=== PATIENT | male | born 1975 ===

== ENCOUNTER 2017-08-22 17:15 | Emergency (ER) | payer OTHER ==
[2017-08-22 17:31] VITALS: RESP 18
--- NOTE | 2017-08-22 17:47 | ED PDOC ---
Lower Extremity Pain/Injury Time Seen by Provider: 08/22/17 17:32 Chief Complaint (Nursing): Lower Extremity Problem/Injury Chief Complaint (Provider): Bilateral Foot Pain History Per: Patient Onset/Duration Of Symptoms: Days (x1 month) Current Symptoms Are (Timing): Still Present Additional Complaint(s): 42 y/o male presenting for evaluation of b/l foot pain x1 month. Patient states he works at a [employer] and does a lot of walking and standing. He denies trauma or injury. Tylenol has helped only minimally with pain. PMD: None Past Medical History Reviewed: Historical Data, Nursing Documentation, Vital Signs Vital Signs: Last Vital Signs Temp 98.6 F 08/22/17 17:29 Pulse 80 08/22/17 17:29 Resp 18 08/22/17 17:29 BP 143/93 H 08/22/17 17:29 Pulse Ox 98 08/22/17 17:29 - Medical History PMH: No Chronic Diseases - Surgical History Other surgeries: Oral surgery - Family History Family History: States: No Known Family Hx - Living Arrangements Living Arrangements: With Family - Social History Current smoker - smoking cessation education provided: No Alcohol: Occasional Drugs: Denies - Home Medications Home Medications: Ambulatory Orders Medication Instructions Recorded Ibuprofen [Motrin Tab] 800 mg PO Q8 PRN #20 tab 08/22/17 - Allergies Allergies/Adverse Reactions: Allergies Allergy/AdvReac Type Severity Reaction Status Date / Time No Known Allergies Allergy Verified 08/22/17 17:31 Wells Criteria for PE - Wells Criteria for Pulmonary Embolism Clinical Signs and Symptoms of DVT: No P.E is #1 Diagnosis, or Equally Likely: No Heart Rate >100: No Immobilization at least 3 days;Surgery previous 4 weeks: No Previous, objectively diagnosed PE or DVT: No Hemoptysis: No Malignancy w/treatment within 6 months, or palliative: No Total Score: 0 Review of Systems ROS Statement: Except As Marked, All Systems Reviewed And Found Negative Constitutional: Negative for: Fever Musculoskeletal: Positive for: Foot Pain (bilateral) Physical Exam - Reviewed Nursing Documentation Reviewed: Yes Vital Signs Reviewed: Yes - Physical Exam Appears: Positive for: Well, Non-toxic, No Acute Distress Head Exam: Positive for: ATRAUMATIC, NORMAL INSPECTION, NORMOCEPHALIC Skin: Positive for: Normal Color. Negative for: Rash Eye Exam: Positive for: Normal appearance Extremity: Positive for: Normal ROM, Tenderness (tenderness to the plantar aspect of both feet, no ulcers, no skin breakdown) Neurologic/Psych: Positive for: Alert, Oriented - ECG O2 Sat by Pulse Oximetry: 98 (RA) Pulse Ox Interpretation: Normal Medical Decision Making Medical Decision Makin:47 Initial Impression: 42 y/o male with bilateral foot pain Plan: --Motrin 600mg PO --X-Ray left foot --X-Ray right foot --Reevaluation Patient is aware of x-ray findings. Patient feels better after Motrin dose. Prescription given for Motrin. Patient was referred to podiatry clinic for follow-up. Scribe Attestation: Documented by Jian Laguna, acting as a scribe for Ilda Snowden PA-C. Provider Scribe Attestation: All medical record entries made by the Scribe were at my direction and personally dictated by me. I have reviewed the chart and agree that the record accurately reflects my personal performance of the history, physical exam, medical decision making, and the department course for this patient. I have also personally directed, reviewed, and agree with the discharge instructions and disposition. Disposition - Clinical Impression Clinical Impression: Heel spur, Plantar fasciitis, bilateral - Patient ED Disposition Is Patient to be Admitted: No Counseled Patient/Family Regarding: Studies Performed, Diagnosis, Need For Followup, Rx Given - Disposition Referrals: Podiatry Clinic [Outside] Disposition: Routine/Home Disposition Time: 18:34 Condition: STABLE Additional Instructions: Take prescription medications as directed as needed for pain. Follow-up with podiatry clinic. Prescriptions: Ibuprofen [Motrin Tab] 800 mg PO Q8 PRN #20 tab PRN Reason: Pain, Moderate (4-7) Instructions: Plantar Fasciitis Exercises, Heel Pain (Caused by Plantar Fasciitis), Heel Spurs (DC) Forms: [employer] (Portuguese), [facility] ED School/Work Excuse Print Language: [place]
[2017-08-22 18:51] VITALS: BP 138/80; PULSE 86; TEMP 98.3; O2SAT 100
--- NOTE | 2017-08-23 11:14 | RAD ---
PROCEDURE: Left Foot Radiographs. HISTORY: pain COMPARISON: None. FINDINGS: BONES: No acute fracture or destructive bony lesion identified. JOINTS: Normal. SOFT TISSUES: A moderate plantar calcaneal spurs identified as well as ossification of the insertion of the Achilles tendon at the posterior calcaneus. OTHER FINDINGS: None. IMPRESSION: Calcaneal spurring as discussed above. No acute fracture or dislocation identified left foot.
--- NOTE | 2017-08-23 11:18 | RAD ---
PROCEDURE: Right Foot Radiographs. HISTORY: pain COMPARISON: None. FINDINGS: BONES: No acute fracture or destructive bony lesion identified. JOINTS: Normal. SOFT TISSUES: Normal. OTHER FINDINGS: None. IMPRESSION: Unremarkable right foot radiographs.
== END 2017-08-22 18:52 | disposition home or self-care (01) ==
LOC: H.ER 17:15
DX: M72.2 Plantar fascial fibromatosis (principal); M77.31 Calcaneal spur, right foot; M77.32 Calcaneal spur, left foot